=== PATIENT | male | born 1940 | race Caucasian/White ===

== ENCOUNTER 2018-12-02 08:48 | Day surgery (SDC) | payer MEDICARE ==
[2018-11-29 09:44] VITALS: BMI 27.3
[~2018-12-02 08:48] MED LIST: LACTATED RINGERS 1,000 ML IV SCH
[2018-12-02 09:55] VITALS: TEMP 97.5
[2018-12-02] MEDS ORDERED: PROPOFOL 10 MG/ML 20 ML VIAL IV ONE (11:13)
[2018-12-02] MEDS ORDERED: LIDOCAINE 1% INJ 10MG/ML (20 ML MDV) ONE (11:13)
[2018-12-02 11:40] VITALS: RESP 16
--- NOTE | 2018-12-02 11:47 | P.PCN ---
Date of Procedure: 12/02/18 Procedure(s) Performed: Procedure: Total colonoscopy and polypectomy. Preoperative diagnosis: Screening for colon cancer, patient has history of polyps. Postoperative diagnosis: 1. Diverticulosis with no evidence of acute diverticulitis or strictures. 2. Small right colon polyp snared, but no large polyps or cancer. Preparation: HalfLytely prep. Sedation: Was provided by anesthesia. Chief clinical history: The patient is a 78-year-old male who is scheduled for this evaluation for screening for neoplasia because of history of polyps. His last exam was 8 years ago. The patient does no abdominal complaints, bleeding or anemia. Procedure: With the patient on his left lateral decubitus position and after informed consent and adequate sedation, the perianal area was inspected and it did not show any fissures or fistulas. There was some degree of anal stenosis on digital rectal examination but no masses were felt. The Olympus CFH 190L video colonoscope was then inserted in the rectum in the usual fashion and advanced to the cecum. The mucosa appeared healthy. A small polyp was noted in the proximal right colon which was snared and retrieved by suction but there were no large polyps or tumors seen. Multiple diverticular orifices were seen scattered along the length of the bowel wall, mostly on the left side with no evidence of acute diverticulitis or strictures. I retroflexed the endoscope in the rectum before the endoscope was withdrawn. The patient tolerated the procedure well. Plan: The patient was reassured. Discussed dietary measures. He will follow up with you as planned.
[2018-12-02 12:00] VITALS: BP 116/72; PULSE 59
== END 2018-12-02 12:19 | disposition home or self-care (01) ==
LOC: ORWHC2ENDO 08:48
DX: Z12.11 Encounter for screening for malignant neoplasm of colon (principal); Z86.010 Personal history of colon polyps; D12.2 Benign neoplasm of ascending colon; K57.30 Diverticulosis of large intestine without perforation or abscess without bleeding; K62.4 Stenosis of anus and rectum; I10 Essential (primary) hypertension; E78.5 Hyperlipidemia, unspecified; N40.0 Benign prostatic hyperplasia without lower urinary tract symptoms; Z79.899 Other long term (current) drug therapy
CPT/HCPCS: 45385; 88305; J2001; J2704

== ENCOUNTER → 2019-12-10 | Outpatient (CLI) | payer MEDICARE ==
--- NOTE | 2019-12-11 20:10 | CT ---
EXAMINATION TYPE: CT sinus wo con DATE OF EXAM: 12/10/2019 COMPARISON: NONE HISTORY: chronic sinusitis per order. Throat and facial pain for [address] DLP: 391.8 mGycm. Automated Exposure Control for Dose Reduction was Utilized. TECHNIQUE: CT scan of the sinuses is performed without contrast, axial images are obtained, coronal r eformatted images are also reviewed. FINDINGS: Mild to moderate lobulated mucosal thickening inferior bilateral maxillary sinuses with add itional 9 mm mucous retention cyst or polyp anterior inferior right maxillary sinus. Remainder parana luis sinuses are clear without suspicious opacification or air-fluid levels. Hypoplastic or non-forme d right frontal sinus noted. The ostiomeatal complex is patent bilaterally on coronal image 19. Visualized portion of mastoid air cells show no abnormal opacification. The globes are intact bilate rally. Visualized brain parenchyma shows mild age-related cerebral atrophy and chronic small vessel ischemic change IMPRESSION: Chronic bilateral maxillary sinus disease. No acute sinusitis.
== END | disposition home or self-care (01) ==
LOC: RADCTMAIN 08:13
PROVIDERS: ATTEND Otolaryngology
DX: J32.0 Chronic maxillary sinusitis (principal); J32.9 Chronic sinusitis, unspecified
CPT/HCPCS: 70486

== ENCOUNTER → 2020-05-03 | Outpatient (CLI) | payer MEDICARE | END | disposition home or self-care (01) | LOC: LABWHC1 15:01 | PROVIDERS: ATTEND Family Medicine | DX: Z20.828 Contact with and (suspected) exposure to other viral communicable diseases (principal) | CPT/HCPCS: U0003; C9803 ==

== ENCOUNTER → 2020-08-08 | Outpatient (CLI) | payer MEDICARE ==
--- NOTE | 2020-08-08 10:10 | US ---
EXAMINATION TYPE: US prostate transrectal DATE OF EXAM: 08/08/2020 COMPARISON: NONE CLINICAL HISTORY: R97.2 Elevated PSA. This examination was performed using the transrectal probe. EXAM MEASUREMENTS: Gland Size: 5.8 x 4.4 x 5.2 cm Volume: 69.08 ml Predicted PSA: 8.29 Actual PSA (if available):4.8 Varying PSA: 04/2018, 3.56. 04/2020, 5.5, 06/2020, 4.8. Unable to fully insert probe. Patient states history of hemorrhoid surgery and that doctors have been unable to do a rectal exam since. The peripheral zone is compressed due to enlarged central zone. No definite nodule identified. Central zone is enlarged and heterogeneous. IMPRESSION: Limited examination no obvious lesion identified. Predicted PSA = volume x 0.12 ng/ml Calculated Volume = 0.5236 x L x W x H
== END | disposition home or self-care (01) ==
LOC: RADUSWWP 09:28
PROVIDERS: ATTEND Family Medicine
DX: R97.20 Elevated prostate specific antigen [PSA] (principal)
CPT/HCPCS: 76872